=== PATIENT | female | born 2000 | race Two or more races ===

== ENCOUNTER → 2021-11-01 | Day surgery (SDC) | payer OTHER ==
[~2021-11-01] MED LIST: BACTRIM DS TAB1 EACH PO; BENTYL 10MG CAP10 MG PO; BUSPIRONE HCL15 MG PO; GLUCOPHAGE 500500 MG PO; HEMOCYTE324 MG PO; HYDROXYZINE HCL25 MG PO; LAMICTAL25 MG PO; LYSTEDA650 MG PO; MINIPRESS1 MG PO; NAPROXEN500 MG PO; PEPCID40 MG PO; PERCOCET 5/325 T1 EA PO; PROMETRIUM 200200 MG GT; TRANDATE 100 M100 MG PO
[2021-11-01 06:10] LABS: HEMOGLOBIN 10.8 gm/dl (12.3-15.3); RED BLOOD COUNT 4.52 M/UL (4.00-5.10); WHITE BLOOD COUNT 5.5 K/UL (4.5-11.0)
[2021-11-01 06:56] LABS: BUN/CREATININE RATIO 12 (0-10)
== END | disposition home or self-care (01) ==
LOC: OR 05:21
PROVIDERS: Obstetrics & Gynecology
DX: N85.00 Endometrial hyperplasia, unspecified (principal); N92.0 Excessive and frequent menstruation with regular cycle; A63.0 Anogenital (venereal) warts; F32.9 Major depressive disorder, single episode, unspecified; I10 Essential (primary) hypertension; E11.9 Type 2 diabetes mellitus without complications; F41.9 Anxiety disorder, unspecified; E03.9 Hypothyroidism, unspecified; E28.2 Polycystic ovarian syndrome; E55.9 Vitamin D deficiency, unspecified; E78.1 Pure hyperglyceridemia; E66.01 Morbid (severe) obesity due to excess calories; Z68.43 Body mass index [BMI] 50.0-59.9, adult; Z20.822 Contact with and (suspected) exposure to COVID-19; Z79.84 Long term (current) use of oral hypoglycemic drugs; Z87.891 Personal history of nicotine dependence; Z88.0 Allergy status to penicillin
CPT/HCPCS: 80053; 84702; 85025; J1100; J1885; J2001; J2250; J2405; J2704; J2795; J3010; J7120; U0002